=== PATIENT | female | born 1990 | race Caucasian/White ===

== ENCOUNTER 2017-09-25 12:33 | Outpatient (CLI) | payer BC ==
--- NOTE | 2017-09-25 12:55 | RAD ---
CHEST TWO VIEWS: HISTORY: Dyspnea. FINDINGS: The cardiac silhouette and pulmonary vasculature are unremarkable. The mediastinum is midline. Ther e is no confluent air space consolidation, pneumothorax, or pleural fluid. IMPRESSION: No active cardiopulmonary abnormalities demonstrated. POS: OFF
== END 2017-09-25 12:34 | disposition home or self-care (01) ==
LOC: RAD 12:33
PROVIDERS: ATTEND Internal Medicine Pulmonary Disease
DX: R06.00 Dyspnea, unspecified (principal)
CPT/HCPCS: 71046